=== PATIENT | male | born 1980 | race Two or more races ===

== ENCOUNTER 2025-08-08 12:11 | Emergency (ER) | payer OTHER, SELFPAY ==
[2025-08-08 12:55] VITALS: BP 155/91; PULSE 72; RESP 17; TEMP 36.9; O2SAT 98; BMI 31.1
--- NOTE | 2025-08-08 13:02 | PD.EDEYE ---
ED Eye Problem RME/HPI General Chief complaint: Eye Problems Stated complaint: METAL IN LEFT EYE Time Seen by Provider: 08/08/25 12:43 Source: patient Arrival date/time: 08/08/25 12:11 45-year-old male with no known medical history presents to the emergency room with a chief complaint of a piece of metal in his left eye Mode of arrival: ambulatory Limitations: no limitations Related Data Previous Rx's ?Medication ?Instructions ?Recorded tramadol 50 mg tablet 50 mg PO .COMPLEX #20 tabs 03/16/18 ciprofloxacin HCl 0.3 % eye drops See Rx Instructions ophthalmic 08/08/25 (eye) .COMPLEX #5 mL Allergies Allergy/AdvReac Type Severity Reaction Status Date / Time No Known Allergies Allergy Verified 03/16/18 17:51 Review of Systems Review of Systems Systems Reviewed: All systems reviewed, normal except as documented Constitutional Constitutional: Reports system reviewed and no additional complaints, except as documented, Denies fatigue, Denies fever(s), Denies headache(s) and Denies weakness Eyes Eyes: Reports system reviewed and no additional complaints, except as documented, Denies blind spots, Denies blurry vision, Denies change in vision, Denies decreased night vision, Denies diplopia, Denies eye discharge, Denies dry eyes, Denies exophthalmos, Denies floaters, Reports irritation, Denies itchy eyes, Denies loss of peripheral vision, Denies loss of vision, Denies other visual disturbances, Reports eye pain, Denies photophobia, Denies requires corrective lenses, Denies seeing flashes, Denies spots in vision and Denies tunnel vision ENT Ears, Nose, Mouth, and Throat: Reports system reviewed and no additional complaints, except as documented, Denies otalgia, Denies headache(s), Denies nasal congestion, Denies throat swelling and Denies vertigo Cardiovascular Cardiovascular: Reports system reviewed and no additional complaints, except as documented, Denies chest pain, Denies dyspnea and Denies dyspnea on exertion Respiratory Respiratory: Reports system reviewed and no additional complaints, except as documented, Denies chest congestion, Denies cough, Denies dyspnea, Denies dyspnea on exertion and Denies wheezing Gastrointestinal Gastrointestinal: Reports system reviewed and no additional complaints, except as documented, Denies abdominal pain, Denies cramping, Denies nausea and Denies vomiting Genitourinary Genitourinary: Reports system reviewed and no additional complaints, except as documented, Denies dysuria and Denies hematuria Musculoskeletal Musculoskeletal: Reports system reviewed and no additional complaints, except as documented and Denies back pain Integumentary/Breasts Skin/Breast: Reports system reviewed and no additional complaints, except as documented and Denies wounds Neurologic Neurologic: Reports system reviewed and no additional complaints, except as documented, Denies confusion, Denies headache(s), Denies lack of coordination, Denies loss of vision, Denies vertigo and Denies weakness Psychiatric Psychiatric: Reports system reviewed and no additional complaints, except as documented, Denies anxiety, Denies confusion, Denies depression, Denies paranoia, Denies suicidal ideation and Denies tactile hallucinations Endocrine Endocrine: Reports system reviewed and no additional complaints, except as documented and Denies fatigue Hematologic/Lymphatic Hematologic/Lymphatic: Reports system reviewed and no additional complaints, except as documented and Denies lymphadenopathy Allergic/Immunologic Allergic/Immunologic: Reports system reviewed and no additional complaints, except as documented, Denies itchy eyes, Denies throat swelling, Denies urticaria and Denies wheezing ED Exam General Limitations: Present no limitations General appearance: Present alert and in no apparent distress Head Head exam: Present atraumatic Eye Eye exam: Present normal appearance, PERRL and EOMI Expanded Eye Exam Pupils: Bilateral: regular, round and reactive Sclera/Conjunctival: left: foreign body (Small piece of metal) ENT ENT exam: Present normal exam, normal oropharynx and mucous membranes moist Neck Neck exam: Present normal inspection, full ROM and trachea midline Chest Chest inspection: Present normal inspection and symmetric chest wall rise Respiratory Respiratory exam: Present normal lung sounds bilaterally Cardiovascular Cardiovascular exam: Present regular rate, normal rhythm and normal heart sounds Abdominal Exam Abdominal exam: Present soft and normal bowel sounds Extremities Exam Extremities exam: Present normal inspection and full ROM Back Exam Back exam: Present normal inspection and full ROM Neurological Exam Neurological exam: Present alert, oriented X3 and CN II-XII intact Psychiatric Psychiatric exam: Present normal affect and normal mood Skin Skin exam: Present warm, dry, intact and normal color Course Quality Measures none Orders Category Date Time Status Bautista Lamp to Bedside X1 Care 08/08/25 12:51 Completed Fluorescein Sodium [Bio-Josie] Med 08/08/25 12:51 Discontinued 1 mg LEFT EYE X1 ONE TETRACAINE Op Jazmine 0.5% [Pontocaine Op Jazmine 0.5%] Med 08/08/25 12:51 Discontinued 1 drop LEFT EYE X1 ONE Vital Signs Vital signs: Vital Signs Temperature 98.5 F 08/08/25 12:55 Pulse Rate 72 08/08/25 12:55 Respiratory Rate 17 08/08/25 12:55 Blood Pressure 155/91 H 08/08/25 12:55 Pulse Oximetry (%) 98 08/08/25 12:55 Oxygen Delivery Method Room Air 08/08/25 12:55 O2 saturation 98% with normal limits Eye MDM Narrative MDM Narrative:: 45-year-old male with no known medical history presents to the emergency room with a chief complaint of a piece of metal in his left eye Patient is hemodynamically stable and in no apparent distress Physical examination shows a small piece of metal in the patient's left eye. It was lamp examination was done. Tetracaine was used to numb up the eye and dye was used. I attempted to get the piece of metal out using a cotton swab and was unsuccessful. I then got the bur pen and with assistance of my attending physician Dr. Marquis I was able to remove the foreign body. This foreign body was in place since Thursday and since it is metal there is some rust ring around the as well as some corneal abrasions. Antibiotics are sent to the patient's pharmacy and the patient was given instructions for the eye [facility] and [facility] as well as the eye [facility] in [place] with phone numbers to call so we can make an appointment Patient data External records reviewed:: [facility] previous records Clinical information provided by:: patient Social determinants that could affect healthcare access:: none Patient has the following chronic illnesses:: No chronic illness How is presenting disease/condition affected by chronic disease/condition?: no chronic disease Evaluation data The following diagnostics were reviewed and interpreted by me:: lab results and radiology exam(s) Lab and/or radiology exams considered but not ordered:: Labs and radiology exams considered and ordered Interpretation Summary: N/A Medications / Prescriptions Medications or Prescriptions considered but not ordered:: Medication given Medication administrations:: Medication Administration History Discontinued Medications Fluorescein Sodium (Fluorescein Sod 1 Mg Strp) 1 mg LEFT EYE X1 ONE Stop: 08/08/25 12:52 Last Admin: 08/08/25 13:06 Dose: 1 mg Documented By: OA Tetracaine HCl (Tetracaine Pf Op Jazmine 0.5% 4 Ml pette) 1 drop LEFT EYE X1 ONE Stop: 08/08/25 12:52 Last Admin: 08/08/25 13:05 Dose: 1 drop Documented By: OA Medication given Consultations Consultation(s) initiated? (list below): No Diagnosis Eye Problem Differential Diagnosis: corneal abrasion, corneal ulcer and other (Foreign body in eye) Most likely diagnosis given after review of the tests above:: Foreign body in eye Admission Indicated Admission indicated?: not indicated Admission Request Was there a request for admission?: No Disposition Plan Disposition Plan: Discharge Discharge Attestation Discharge Attestation: The patient and all family members were given an opportunity to ask questions and understood the discharge instructions. Discharge instructions specifically effects, indications for sooner follow up or return to the emergency department, and the expected course of current diagnosis. Patient condition: Stable Discharge Plan Plan Patient Disposition: HOME (Self Care) Discharge Disposition comment: Stable Prescriptions/Referrals Prescriptions/Med Rec: New ciprofloxacin HCl 0.3 % drops See Rx Instructions .ROUTE .COMPLEX Qty: 5 0RF Rx Instructions: put 1-2 drps in affected eye(s) every 2hr up to 8 times/day x2days; then 4 times/day x5days No Action tramadol 50 mg tablet 50 mg PO .COMPLEX Qty: 20 0RF Rx Instructions: 50 mg PO Q4-6HR Problem List Clinical Impression: Corneal abrasion, Foreign body in eye Patient/Caregiver Discharge Instructions Education Materials: Corneal Injury, ED Corneal Abrasion Additional Instructions: Please follow-up with your primary care provider in the next 24 to 48 hours Please pharmacy picking technician the antibiotics that were sent to your pharmacy Please follow-up with the [facility] in [place] for further management [phone] or the eye [facility] in [place] [phone] For any evidence of worsening signs or symptoms return emergency room immediately Print Language: Indonesian Stand Alone Forms: Emily Award Info., Work/School Release, Patient Portal Info Letter PA/RACE CAR DRIVER Supervising Physician PA/SHANNON Supervising Physician: Dr. Marquis
[2025-08-08] MEDS: TETRACAINE PF OP SOL 0.5% 4 ML DRPETTE 1 DROP LEFT EYE (13:05)
[2025-08-08] MEDS: FLUORESCEIN SOD 1 MG STRP LEFT EYE (13:06)
== END 2025-08-08 15:37 | disposition home or self-care (01) ==
PROVIDERS: Emergency Provider Nurse Practitioner Family
DX: T15.02XA Foreign body in cornea, left eye, initial encounter (principal); W44.8XXA Other foreign body entering into or through a natural orifice, initial encounter
CPT/HCPCS: 99281